=== PATIENT | female | born 1940 | race African-American/Black ===

== ENCOUNTER 2022-06-12 11:44 | Emergency (ER) | payer MEDICARE ==
[~2022-06-12] VITALS: Ht 161.5 cm; Wt 97.7 kg
--- NOTE | 2022-06-12 12:32 | NUR ---
PT W/C ASSISTED TO BED 2.
--- NOTE | 2022-06-12 13:00 | NUR ---
82 Y.O. F C/O RIGHT KNEE PAIN X 3 DAYS. PT THINKS SHE MISSED STEPPED AND TWISTED HER KNEE. PT DENIES FALLING. 7/10 PAIN. A&OX4, SKIN INTACT, VITALS WNL FOR PT, AND STEADY GAIT. NKA PMH: HTN MED:ATENOLOL
[2022-06-12] MEDS ORDERED: ACETAMINOPHEN EXTRA STRENGTH 500 MG TAB PO ONE (14:20)
[2022-06-12] MEDS ORDERED: ACET-10509 PO (15:04)
--- NOTE | 2022-06-12 15:30 | NUR ---
MANUELA WRAP X 1 APPLIED. + CMS AFTER APPLICATION
[2022-06-12 15:42] VITALS: BP 117/86
--- NOTE | 2022-06-12 15:43 | NUR ---
Patient discharged with v/s stable. Written and verbal after care instructions given and explained. Patient alert, oriented and verbalized understanding of instructions. Ambulatory with steady gait. All questions addressed prior to discharge. ID band removed. Patient advised to follow up with PMD. Rx of TYLENOL EXTRA STRENGTH given. Patient educated on indication of medication including possible reaction and side effects. Opportunity to ask questions provided and answered.
== END 2022-06-12 15:43 | disposition home or self-care (01) ==
LOC: MED 11:44
DX: M79.651 Pain in right thigh (principal); R10.9 Unspecified abdominal pain; I10 Essential (primary) hypertension; Z90.49 Acquired absence of other specified parts of digestive tract; Z79.899 Other long term (current) drug therapy
CPT/HCPCS: 99283

== ENCOUNTER 2023-02-01 13:17 | Emergency (ER) | payer MEDICARE ==
[~2023-02-01] VITALS: Ht 165.1 cm; Wt 98.0 kg
[~2023-02-01 13:17] MED LIST: ACET-10509 PO
[2023-02-01 13:27] VITALS: BP 129/69
[2023-02-01] MEDS ORDERED: IBUP-2213 PO (15:43)
[2023-02-01 16:09] VITALS: BP 124/71
--- NOTE | 2023-02-01 16:10 | NUR ---
ASSUMED PATIENT CARE FOR DC INSTRUCTIONS.
--- NOTE | 2023-02-01 16:10 | NUR ---
Patient discharged with v/s stable. Written and verbal after care instructions given and explained. Patient verbalized understanding. Ambulatory with steady gait. All questions addressed prior to discharge. Advised to follow up with PMD.
== END 2023-02-01 16:09 | disposition home or self-care (01) ==
LOC: MED 13:17
DX: S00.11XA Contusion of right eyelid and periocular area, initial encounter (principal); H11.31 Conjunctival hemorrhage, right eye; I10 Essential (primary) hypertension; Z79.899 Other long term (current) drug therapy; W01.198A Fall on same level from slipping, tripping and stumbling with subsequent striking against other object, initial encounter; Y92.89 Other specified places as the place of occurrence of the external cause; Y93.89 Activity, other specified; Y99.8 Other external cause status
CPT/HCPCS: 70450; 70486; 99284

== ENCOUNTER 2024-04-20 10:14 | Emergency (ER) | payer MEDICARE ==
[~2024-04-20] VITALS: Ht 160 cm; Wt 96.4 kg
[~2024-04-20 10:14] MED LIST changes: +IBUP-2213 PO
[2024-04-20 10:21] VITALS: BP 147/81; PULSE 98; RESP 18; TEMP 97.5; O2SAT 100
[2024-04-20 12:01] VITALS: BP 148/94; PULSE 85; RESP 16; TEMP 97.7; O2SAT 100
[2024-04-20] MEDS ORDERED: CEPH-588 PO (13:52)
== END 2024-04-20 14:19 | disposition home or self-care (01) ==
LOC: MED 10:14
DX: L03.115 Cellulitis of right lower limb (principal); J45.909 Unspecified asthma, uncomplicated; I10 Essential (primary) hypertension; Z79.1 Long term (current) use of non-steroidal anti-inflammatories (NSAID); Z79.2 Long term (current) use of antibiotics
CPT/HCPCS: 93971; 99284; Q0092

== ENCOUNTER 2024-07-01 11:35 | Emergency (ER) | payer MEDICARE ==
[~2024-07-01] VITALS: Ht 157.5 cm; Wt 94.3 kg
[~2024-07-01 11:35] MED LIST changes: -ACET-10509 PO; +ACET500T99 PO; +CEPH-588 PO
[2024-07-01 12:01] VITALS: BP 116/77; PULSE 68; RESP 18; TEMP 98.6; O2SAT 99
[2024-07-01 14:01] LABS: BASOPHILS % (AUTO) 0.8 % (0.0-2.0); EOSINOPHILS # (AUTO) 0.1 K/uL (0-0.4); EOSINOPHILS % (AUTO) 1.4 % (0.0-4.0); LYMPHOCYTES # (AUTO) 1.4 K/uL (2.5-16.5); LYMPHOCYTES % (AUTO) 33.2 % (20.5-51.1); MEAN CORPUSCULAR HEMOGLOBIN 26 pg (27-31); MEAN CORPUSCULAR HGB CONC 32 g/dL (33-37); MEAN CORPUSCULAR VOLUME 82.7 fL (80-94); MONOCYTES # (AUTO) 0.3 K/uL (0.8-1.0); MONOCYTES % (AUTO) 7.9 % (1.7-9.3); NEUTROPHILS # (AUTO) 2.3 K/uL (1.8-7.7); NEUTROPHILS % (AUTO) 56.7 % (42.2-75.2); PLATELET COUNT (AUTO) 110 K/uL (140-450); RED BLOOD CELL COUNT(AUTO) 4.59 MIL/uL (4.20-5.40); RED CELL DISTRIBUTION WIDTH 14.5 % (11.6-13.7); WHITE BLOOD COUNT (AUTO) 4.1 K/uL (4.8-10.8)
[2024-07-01 14:15] LABS: ANION GAP 14.1 (8-16); CALCIUM 9.4 mg/dL (8.5-10.1); CARBON DIOXIDE 28.7 mmol/L (21-32); CHLORIDE 104 mmol/L (98-107); CREATININE 1.5 mg/dL (0.6-1.3); GLUCOSE 96 mg/dL (74-106); POTASSIUM 3.8 mmol/L (3.5-5.1); SODIUM SERUM 143 mmol/L (136-145); UREA NITROGEN, BLOOD 20 mg/dL (7-18)
[2024-07-01 14:17] LABS: BILIRUBIN,DIRECT 0.2 mg/dL (0.0-0.3); TOTAL BILIRUBIN 0.5 mg/dL (0.0-1.0); TOTAL PROTEIN, SERUM 7.5 g/dL (6.4-8.2)
[2024-07-01] MEDS ORDERED: ACET500T99 PO (15:03)
[2024-07-01] MEDS ORDERED: IBUP-2218 PO (15:03)
[2024-07-01 15:25] VITALS: BP 138/78; PULSE 69; RESP 18; TEMP 98; O2SAT 99
== END 2024-07-01 15:25 | disposition home or self-care (01) ==
LOC: MED 11:35
DX: R10.32 Left lower quadrant pain (principal); J45.909 Unspecified asthma, uncomplicated; I10 Essential (primary) hypertension; Z79.1 Long term (current) use of non-steroidal anti-inflammatories (NSAID); Z79.899 Other long term (current) drug therapy
CPT/HCPCS: 36415; 80048; 80076; 83690; 85025; 99284